=== PATIENT | female | born 1975 | race Caucasian/White ===

== ENCOUNTER 2019-06-03 20:40 | Emergency (ER) | payer OTHER ==
[~2019-06-03] VITALS: Ht 152.4 cm; Wt 68.1 kg
[2019-06-03] MEDS ORDERED: LACTATED RINGERS 1,000 ML IV ONE (20:59)
[2019-06-03] MEDS ORDERED: MAGNESIUM 1 GM/100 ML IVPB 100 ML IV STA (20:59)
[2019-06-03] MEDS ORDERED: diphenhydrAMINE 50 MG/ML INJ (BENADRYL) IVP ONE (21:00)
[2019-06-03] MEDS ORDERED: ACETAMINOPHEN 325 MG TABLET PO ONE (21:00)
[2019-06-03] MEDS ORDERED: PROCHLORPERAZINE 10 MG/2ML INJ (COMPAZINE) IV ONE (21:00)
--- NOTE | 2019-06-03 21:19 | ED Headache ---
General Chief Complaint: Head/Cervical Problems Stated Complaint: HEAD POUNDING History of Present Illness Date Seen by Provider: Jun 03, 2019 Time Seen by Provider: 20:45 Initial Comments The patient is a 43-year-old female with a history of tobacco abuse but who is otherwise healthy. She reports history of headaches in the past, although not very frequently. She presents with concern for acute onset of bilateral frontal headache with radiation to the occiput, all with onset about half an hour prior to arrival while she was taking a shower. Onset was rather abrupt. Patient reports pain is pounding in character and 10/10 in severity currently. Associated nausea with at least one episode of nonbloody vomiting. Associated photophobia. No associated fevers, upper respiratory congestion/rhinorrhea, focal weakness, numbness, tingling, neck stiffness/pain/meningismus, vision changes, shortness of breath or chest pain. No recent falls or injuries to her head. Patient is alert and pleasantly and appropriately interactive upon initial evaluation in the emergency department. Allergies and Home Medications Allergies Coded Allergies: No Known Drug Allergies (Unverified , 06/03/19) Patient Home Medication List Home Medication List Reviewed: Yes Review of Systems Review of Systems Constitutional: see HPI All Other Systems Reviewed Negative Unless Noted: Yes (Negative excepted noted.) Past Kujtncp-Rxpfzw-Fumerb Hx Past Med/Social Hx: Reviewed Nursing Past Med/Soc Hx Patient Social History Recent Foreign Travel: No Contact w/Someone Who Travel: No Family Medical History Reviewed Nursing Family Hx Physical Exam Vital Signs Capillary Refill : Height, Weight, BMI Height: '" Weight: lbs. oz. kg; BMI Method: General Appearance: no apparent distress Comments This is a middle-aged female appearing nontoxic and in no acute distress. Head is normocephalic and atraumatic. Neck is supple and nontender and there is no neck stiffness/meningismus and patient is able to range her neck in all dimensions without discomfort or distress. Oropharynx is moist. Lungs are clear to auscultation at all stations. There is a normal S1 and S2 without rubs or gallops and capillary refill is appropriate, less than 2 seconds globally. Abdomen is soft, nontender nondistended. Skin is warm and dry without cyanosis, clubbing or edema. Psychiatrically, the patient demonstrates appropriate mood and affect and is alert. Neurologically, cranial nerves II through XII are intact and there are no lateralizing deficits noted. Speech is normal. Language is normal. Coordination is normal. There is no dysmetria with finger to nose bilaterally. Strength is 5 out of 5 at all joints of bilateral upper and lower extremities. There is no drift with arm or leg raise bilaterally. Sensation is intact to light touch in bilateral upper and lower extremities. The patient ambulates with a narrow, steady gait. She is alert and oriented 4. Progress/Results/Core Measures Results/Orders Lab Results Laboratory Tests Test 06/03/19 21:24 Range/Units Urine Test NEGATIVE NEGATIVE My Orders Orders - TANO SANDOVAL MD Ct Head Wo (06/03/19 20:59) Iv/Invasive Line Insertion .IV start (06/03/19 20:59) Prochlorperazine Injection (Compazine In (06/03/19 21:00) Diphenhydramine Injection (Benadryl Inje (06/03/19 21:00) Acetaminophen Tablet/Caplet (Tylenol T (06/03/19 21:00) Magnesium 1 Gm/100 Ml Ivpb (Magnesium Novoa (06/03/19 20:59) Lactated Ringers (Lr 1000 Ml Iv Solution (06/03/19 20:59) Hcg,Qualitative Urine (06/03/19 21:06) Medications Given in ED Current Medications Medications Dose Ordered Sig/Twan Route Start Time Stop Time Status Last Admin Dose Admin Acetaminophen 975 mg ONCE ONCE PO 06/03/19 21:00 06/03/19 21:01 DC 06/03/19 21:16 975 MG Diphenhydramine HCl 25 mg ONCE ONCE IVP 06/03/19 21:00 06/03/19 21:01 DC 06/03/19 21:17 25 MG Lactated Ringer's 1,000 ml @ 0 mls/hr Q0M ONCE IV 06/03/19 20:59 06/03/19 21:01 DC 06/03/19 21:17 999 MLS/HR Prochlorperazine Edisylate 10 mg ONCE ONCE IV 06/03/19 21:00 06/03/19 21:01 DC 06/03/19 21:17 10 MG Progress Progress Note : Time: 21:20 Progress Note Clinical examination reassuring and neurologic examination nonfocal. 43-year-old female who presents with rather abrupt onset of intense bilateral frontal headache. No meningismus. We will check a noncontrast CT of the head and will place an IV and give IV fluids and medication for headache and will then reevaluate. Update 2049: Head CT unremarkable and after Compazine and Benadryl headache entirely resolved. Patient's pain is 0 out of 10 at present. She feels well at this time. IV blew before magnesium and IV fluids could be given but with complete resolution of discomfort see no reason to pursue further therapeutics at this point. We will proceed with discharge home. Patient is counseled that if her symptoms recur or worsen or if any other new symptoms of concern develop kaylyn t she should return to the emergency department right away for reevaluation. All questions are answered. Diagnostic Imaging Comments PROCEDURE: CT head without contrast. TECHNIQUE: Multiple contiguous axial images were obtained through the brain without the use of intravenous contrast. Auto Exposure Controls were utilized during the CT exam to meet ALARA standards for radiation dose reduction. INDICATION: Headache. FINDINGS: The ventricles and sulci are within normal limits. There is no hydrocephalus or cerebral edema. There is no midline shift or mass effect. There is no intracranial mass, hemorrhage, or extra-axial fluid collection. The visualized paranasal sinuses and mastoid air cells are clear. There are no regional areas of decreased attenuation appreciated to suggest an acute CVA. IMPRESSION: No acute intracranial abnormality. Dictated by: Dictated on workstation # [id number] Departure Impression Primary Impression: Headache Qualified Codes: G44.89 - Other headache syndrome Disposition: HOME, SELF-CARE Condition: Improved Departure-Patient Inst. Referrals: NO,LOCAL PHYSICIAN (PCP/Family) Primary Care Physician Patient Instructions: Headache, Adult Add. Discharge Instructions: Please follow up closely with your primary care physician within the next 2-4 days. Return to the emergency department right away with worsening symptoms or with any other new symptoms of concern. Scripts Prochlorperazine Maleate (Compazine) 10 Mg Tablet 10 MG PO Q6H for Nausea, #10 TAB Prov: TANO SANDOVAL MD 06/03/19 Naproxen (Naprosyn) 500 Mg Tablet 500 MG PO Q12H for Pain, #24 TAB Prov: TANO SANDOVAL MD 06/03/19 TANO SANDOVAL MD Jun 03, 2019 21:19
--- NOTE | 2019-06-03 21:49 | Diagnostic Imaging Report ---
PROCEDURE: CT head without contrast. TECHNIQUE: Multiple contiguous axial images were obtained through the brain without the use of intravenous contrast. Auto Exposure Controls were utilized during the CT exam to meet ALARA standards for radiation dose reduction. INDICATION: Headache. FINDINGS: The ventricles and sulci are within normal limits. There is no hydrocephalus or cerebral edema. There is no midline shift or mass effect. There is no intracranial mass, hemorrhage, or extra-axial fluid collection. The visualized paranasal sinuses and mastoid air cells are clear. There are no regional areas of decreased attenuation appreciated to suggest an acute CVA. IMPRESSION: No acute intracranial abnormality. Dictated by: Dictated on workstation # [id number]
[2019-06-03 22:00] VITALS: BP 138/82
[2019-06-03] MEDS ORDERED: PROC-1 PO (22:01)
[2019-06-03] MEDS ORDERED: NAPR-1071 PO (22:01)
== END 2019-06-03 22:00 | disposition home or self-care (01) ==
LOC: ER FS 20:42
DX: R51 Headache (principal)
CPT/HCPCS: 70450; 84703; 96374; 96375

== ENCOUNTER 2021-08-11 14:50 | Emergency (ER) | payer OTHER ==
[~2021-08-11 14:50] MED LIST: NAPR-1071 PO; PROC-1 PO
[2021-08-11] MEDS ORDERED: fentaNYL INJ 100 MCG/2 ML AMP IVP STA (14:55)
[2021-08-11] MEDS ORDERED: KETAMINE HCL 100 MG/ML 5 ML VIAL IV STA (14:55)
[2021-08-11] MEDS ORDERED: KETAMINE 50 MG/5 ML SYRINGE ONE (14:57)
[2021-08-11] MEDS ORDERED: TETANUS,DIPTH,PERTUSS P/F (BOOSTRIX) 0.5 ML VIAL IM ONE (15:00)
[2021-08-11] MEDS ORDERED: ONDANSETRON 4 MG/2 ML (SDV) Z0FRAN IVP ONE (15:00)
[2021-08-11 15:15] LABS: BASOPHILS # (AUTO) 0.1 10^3/uL (0.0-0.1); BASOPHILS % (AUTO) 0 % (0-10); EOSINOPHILS # (AUTO) 0.3 10^3/uL (0.0-0.3); EOSINOPHILS % (AUTO) 1 % (0-10); HEMATOCRIT 42 % (35-52); HEMOGLOBIN 14.1 g/dL (11.5-16.0); LYMPHOCYTES # (AUTO) 6.5 10^3/uL (1.0-4.0); LYMPHOCYTES % (AUTO) 32 % (12-44); MEAN CORPUSCULAR HEMOGLOBIN 29 pg (25-34); MEAN CORPUSCULAR HGB CONC 34 g/dL (32-36); MEAN CORPUSCULAR VOLUME 86 fL (80-99); MEAN PLATELET VOLUME 10.2 fL (9.0-12.2); MONOCYTES # (AUTO) 1.5 10^3/uL (0.0-1.0); MONOCYTES % (AUTO) 7 % (0-12); NEUTROPHILS # (AUTO) 12.1 10^3/uL (1.8-7.8); NEUTROPHILS % (AUTO) 59 % (42-75); PLATELET COUNT 393 10^3/uL (130-400); WHITE BLOOD COUNT 20.5 10^3/uL (4.3-11.0)
[2021-08-11] MEDS ORDERED: LACTATED RINGERS 1,000 ML IV STA (15:17)
[2021-08-11 15:19] LABS: ALANINE AMINOTRANSFERASE 20 U/L (0-55); ALBUMIN 4.4 GM/DL (3.2-4.5); ALKALINE PHOSPHATASE 111 U/L (40-136); BILIRUBIN,TOTAL < 0.2 MG/DL (0.1-1.0); BUN/CREATININE RATIO 12; CALCIUM 9.8 MG/DL (8.5-10.1); CARBON DIOXIDE 14 MMOL/L (21-32); CHLORIDE 101 MMOL/L (98-107); CREATININE SERUM 0.85 MG/DL (0.60-1.30); GFR ESTIMATED 87; GLUCOSE 111 MG/DL (70-105); POTASSIUM 3.7 MMOL/L (3.6-5.0); SODIUM 137 MMOL/L (135-145); TOTAL PROTEIN 7.6 GM/DL (6.4-8.2)
[2021-08-11 15:23] LABS: EOSINOPHILS % (MANUAL) 2 %; LYMPHOCYTES % (MANUAL) 25 %; MONOCYTES % (MANUAL) 9 %; NEUTROPHILS % (MANUAL) 64 %
[2021-08-11] MEDS ORDERED: morphine INJ 10 MG/ML 1ML (SYR OR VIAL) IVP PRN (15:30)
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
[2021-08-11] MEDS ORDERED: HYDROmorphone 2 MG/ML VIAL (DILAUDID) IV ONE (15:45)
[2021-08-11 16:48] VITALS: BP 142/72
== END 2021-08-11 16:48 | disposition short-term general hospital (02) ==
LOC: EDUNIT# 14:50 → ER FS 14:51
DX: T24.212A Burn of second degree of left thigh, initial encounter (principal); T24.211A Burn of second degree of right thigh, initial encounter; T23.271A Burn of second degree of right wrist, initial encounter; T23.201A Burn of second degree of right hand, unspecified site, initial encounter; Z32.02 Encounter for pregnancy test, result negative; X00.0XXA Exposure to flames in uncontrolled fire in building or structure, initial encounter
CPT/HCPCS: 36415; 80053; 84703; 85007; 85027; 90715